=== PATIENT | male | born 1970 | race Two or more races ===

== ENCOUNTER 2024-03-07 10:57 | Inpatient (IN) | payer OTHER ==
[~2024-03-07] VITALS: Ht 154.9 cm; Wt 89.8 kg
--- NOTE | 2024-03-07 12:43 | NUR ---
PTE REFIEFE DOLOR Y DISTENCION ABDOMINAL DESDE EL MIERCOLES . SE LE EVANS/V YS EUBICA EN PASILLO.
[2024-03-07] MEDS ORDERED: RINGERS SOLUTION,LACTATED 1,000 ML IV STA (13:24)
[2024-03-07] MEDS ORDERED: MEPERIDINE HCL/PF 50 MG/ML VIAL IM STA (13:25)
[2024-03-07 13:56] LABS: HEMATOCRIT 41.8 % (39.0-48.0); HEMOGLOBIN 14.8 g/dL (13-16.00); MEAN CELL VOLUME 91.4 fL (80.0-100.00); MEAN CORPUSCULAR HEMOGLOBIN 32.4 pg (27.00-32.0); MEAN CORPUSCULAR HGB CONC 35.4 g/dl (32.0-36.0); PLATELET COUNT 287 K/uL (150-450); RED BLOOD COUNT 4.57 M/uL (4.00-6.00); RED CELL DISTRIBUTION WIDTH 12.9 % (11.5-14.5)
--- NOTE | 2024-03-07 14:09 | NUR ---
SE ORIENTA PTE SOBRE TX, REFIERE ENTENDER Y ACEPTAR. SE LE JENNIFER MUESTRAS DE LABORATORIO, SE LE CANALIZA Y SE LE ADMINISTRAN MEDICAMENTOS AREN ORDEN MEDICA Y BAJO MEDIDAS ASEPTICAS. PTE TOLERA Y NO PRESENTA REACCION ADVERSA. PENDIENTE CT YA NOTIFICADO.
[2024-03-07 14:35] LABS: ALBUMIN 4.2 gm/dL (3.4-5.0); BILIRUBIN TOTAL 1.15 mg/dL (0.3-1.2); BILIRUBIN,CONJUGATED 0.19 mg/dL (0.0-0.2); BILIRUBIN,UNCONJUGATED 0.96 mg/dL (0.0-0.6); CALCIUM 9.1 mg/dL (8.5-10.1); CREATININE SERUM 1.2 mg/dL (0.70-1.30); GFR 63.33; POTASSIUM 4.06 mEq/L (3.5-5.1); TOTAL PROTEIN 7.4 gm/dL (6.4-8.2)
[2024-03-07 14:46] LABS: URINE APPEARANCE Clear; URINE BILIRRUBIN Negative (NEGATIVE); URINE BLOOD Negative; URINE COLOR Yellow; URINE GLUCOSE Negative (NEGATIVE); URINE KETONE Negative (NEGATIVE); URINE LEUKOCYTE Negative; URINE NITRATE Negative; URINE PROTEIN Negative (NEGATIVE); URINE UROBILINOGEN 0.2 E.U./dl
[2024-03-07 14:50] LABS: URINE BACTERIA 24.4 uL (0.0-1933); URINE EPITHELIAL CELLS 3.1 uL (0.0-38.8); URINE WBC 3.3 uL (0.0-23.2)
[2024-03-07] MEDS ORDERED: PIPERACILLIN/TAZOBACTAM SODIUM 3.375 GM VIAL IV STA (14:52)
[2024-03-07] MEDS ORDERED: PIPERACILLIN/TAZOBACTAM SODIUM 3.375 GM in DEXTROSE 5 % IN WATER 100 ML IV SCH (19:49)
[2024-03-07] MEDS ORDERED: ONDANSETRON HCL 4 MG in 0.9 % SODIUM CHLORIDE 50 ML IV PRN (20:00)
[2024-03-07] MEDS ORDERED: 0.9 % SODIUM CHLORIDE 1,000 ML IV SCH (20:00)
[2024-03-07] MEDS ORDERED: ACETAMINOPHEN 325 MG TABLET PO PRN (20:00)
[2024-03-07] MEDS ORDERED: MORPHINE SULFATE 2 MG/ML CARTRIDGE IV PRN (20:00)
[2024-03-07 23:51] VITALS: BP 128/73; O2SAT 97
[2024-03-08 00:16] LABS: INR 1.12; PARTIAL THROMBOPLASTIN TIME 33.3 SECONDS (22.0-34.0); PROTHROMBIN TIME 12.1 SECONDS (9.0-11.5)
[2024-03-08 03:59] VITALS: BP 147/77; O2SAT 95
[2024-03-08 08:00] VITALS: BP 140/90; O2SAT 97
[2024-03-08] MEDS ORDERED: FAMOTIDINE/PF 20 MG/2 ML VIAL IV SCH (09:00)
[2024-03-08] MEDS ORDERED: AMLODIPINE BESYLATE 5 MG TABLET PO SCH (09:00)
[2024-03-08] MEDS ORDERED: PATIENTS OWN MEDICATION (MEDICAMENTO EN PISO) PO SCH (09:00)
[2024-03-08] MEDS ORDERED: ACETAMINOPHEN 500 MG GEL..CAP PO PRN (14:45)
[2024-03-08] MEDS ORDERED: MORPHINE SULFATE 4 MG/ML VIAL IV ONE ×2 (15:05→15:35)
[2024-03-08 16:06] VITALS: BP 144/77; O2SAT 97
[2024-03-09 01:33] VITALS: BP 141/71; O2SAT 100
[2024-03-09 08:00] VITALS: BP 138/80; O2SAT 95
[2024-03-09] MEDS ORDERED: OxyCODONE HCL/APAP UD (PERCOCET) PO PRN (15:30)
[2024-03-09 16:53] VITALS: BP 129/64; O2SAT 95
[2024-03-10 02:13] VITALS: BP 127/84; O2SAT 96
[2024-03-10 02:21] VITALS: BP 127/78; O2SAT 100
[2024-03-10 08:00] VITALS: BP 155/94; O2SAT 95
[2024-03-10] MEDS ORDERED: METOCLOPRAMIDE HCL 5 MG/ML VIAL IV SCH (13:10)
[2024-03-10 14:55] LABS: HEMATOCRIT 38.1 % (39.0-48.0); HEMOGLOBIN 12.9 g/dL (13-16.00); MEAN CELL VOLUME 93.6 fL (80.0-100.00); MEAN CORPUSCULAR HEMOGLOBIN 31.8 pg (27.00-32.0); PLATELET COUNT 299 K/uL (150-450); RED BLOOD COUNT 4.07 M/uL (4.00-6.00); RED CELL DISTRIBUTION WIDTH 12.7 % (11.5-14.5)
[2024-03-10 16:00] VITALS: BP 140/74; O2SAT 97
[2024-03-11 00:38] VITALS: BP 154/96; O2SAT 94
[2024-03-11 07:08] LABS: HEMATOCRIT 36.5 % (39.0-48.0); HEMOGLOBIN 12.9 g/dL (13-16.00); MEAN CELL VOLUME 92.1 fL (80.0-100.00); MEAN CORPUSCULAR HEMOGLOBIN 32.4 pg (27.00-32.0); MEAN CORPUSCULAR HGB CONC 35.2 g/dl (32.0-36.0); PLATELET COUNT 348 K/uL (150-450); RED BLOOD COUNT 3.97 M/uL (4.00-6.00); RED CELL DISTRIBUTION WIDTH 12.9 % (11.5-14.5)
[2024-03-11 08:44] VITALS: BP 156/92; O2SAT 97
[2024-03-11] MEDS ORDERED: BISACODYL 10 MG/SUPP.RECT SUPP.RECT RECTAL NR (12:00)
[2024-03-11 16:00] VITALS: BP 154/96; O2SAT 95
[2024-03-11] MEDS ORDERED: MEPERIDINE HCL/PF 25 MG/ML VIAL IV PRN (20:30)
[2024-03-12 00:11] VITALS: BP 142/84; O2SAT 96
[2024-03-12] MEDS ORDERED: DIATRIZOATE MEGLUMINE, SODIUM 30 ML BOTTLE PO ONE (06:00)
[2024-03-12 08:00] VITALS: BP 146/90; O2SAT 98
[2024-03-12 09:42] LABS: HEMATOCRIT 38.8 % (39.0-48.0); HEMOGLOBIN 13.7 g/dL (13-16.00); MEAN CELL VOLUME 91.8 fL (80.0-100.00); MEAN CORPUSCULAR HEMOGLOBIN 32.4 pg (27.00-32.0); MEAN CORPUSCULAR HGB CONC 35.3 g/dl (32.0-36.0); PLATELET COUNT 386 K/uL (150-450); RED BLOOD COUNT 4.23 M/uL (4.00-6.00); RED CELL DISTRIBUTION WIDTH 12.8 % (11.5-14.5)
[2024-03-12 10:36] LABS: CREATININE SERUM 1.21 mg/dL (0.70-1.30); GFR 62.73; POTASSIUM 3.57 mEq/L (3.5-5.1)
[2024-03-12 16:00] VITALS: BP 159/82; O2SAT 96
[2024-03-12] MEDS ORDERED: DIPHENHYDRAMINE HCL 50 MG in DEXTROSE 5 % IN WATER 50 ML IV PRN (18:30)
[2024-03-13 00:38] VITALS: BP 139/79; O2SAT 96
[2024-03-13 08:00] VITALS: BP 144/72; O2SAT 98
[2024-03-13 16:00] VITALS: BP 157/93; O2SAT 97
[2024-03-14] VITALS: BP 142/83; O2SAT 95
[2024-03-14 08:00] VITALS: BP 160/90; O2SAT 99
== END 2024-03-14 15:13 | disposition home or self-care (01) | DRG 398 ==
LOC: ER 11:00 → SURH 20:24 → SEC-K 20:24 → SURH 23:53
PROVIDERS: General Practice; Surgery; ADMIT Internal Medicine; ATTEND Internal Medicine
PROC: BW21ZZZ Computerized Tomography (CT Scan) of Abdomen and Pelvis (ICD-10-PCS; 2024-03-07)
PROC: 0DTJ0ZZ Resection of Appendix, Open Approach (ICD-10-PCS; principal; 2024-03-08 10:30)
PROC: BW21ZZZ Computerized Tomography (CT Scan) of Abdomen and Pelvis (ICD-10-PCS; 2024-03-12)
DX: K35.891 Other acute appendicitis without perforation, with gangrene (principal); K56.0 Paralytic ileus; D72.828 Other elevated white blood cell count; R14.0 Abdominal distension (gaseous); I10 Essential (primary) hypertension